=== PATIENT | female | born 1955 | race Caucasian/White ===

== ENCOUNTER → 2017-05-22 | Outpatient (CLI) | payer BC | LOC: MC.RAD 09:52 | DX: Z12.31 Encounter for screening mammogram for malignant neoplasm of breast (principal) ==

== ENCOUNTER → 2019-09-21 | Outpatient (CLI) | payer BC | LOC: MC.RAD 10:19 | DX: Z12.31 Encounter for screening mammogram for malignant neoplasm of breast (principal) ==

== ENCOUNTER → 2020-03-02 | Outpatient (CLI) | payer BC | LOC: MC.RAD 02-22 13:45 | DX: N63.20 Unspecified lump in the left breast, unspecified quadrant (principal); N64.89 Other specified disorders of breast; R92.0 Mammographic microcalcification found on diagnostic imaging of breast ==

== ENCOUNTER → 2020-03-31 | Outpatient (CLI) | payer BC ==
[~2020-03-31] MED LIST: ASPIRIN E.C. 8181 MG PO; DIOVAN HCT 25 M1 TAB PO; ULTRAM 50MG TAB50 MG PO
[2020-03-31 07:25] LABS: HEMATOCRIT 43.1 % (37.0-47.0); HEMOGLOBIN 13.9 g/dl (12.5-16.0); MEAN CELL VOLUME 85 fl (80.0-100.0); MEAN CORPUSCULAR HEMOGLOBIN 28 pg (27.0-31.0); MEAN CORPUSCULAR HGB CONC 32 g/dl (33.0-37.0); MEAN PLATELET VOLUME 9.5 fl (7.4-10.4); PLATELET COUNT 238 K/mm3 (130-400); RED BLOOD COUNT 5.06 M/mm3 (4.10-5.30); REDCELL DISTRIBUTION WIDTH-CV 13.6 % (11.5-14.5)
[2020-03-31 07:38] LABS: BILIRUBIN,TOTAL 1.4 mg/dL (0.0-1.0); CALCIUM 9.3 mg/dL (8.4-10.2); CHOLESTEROL RISK RATIO 3.9; CREATININE, serum 1.14 (0.52-1.25); POTASSIUM 3.8 mmol/L (3.4-5.0); TOTAL PROTEIN 7.6 gm/dL (6.4-8.2)
== END ==
LOC: COL.LAB 06:56
PROVIDERS: Surgery
DX: Z01.818 Encounter for other preprocedural examination (principal); I10 Essential (primary) hypertension

== ENCOUNTER 2020-04-03 06:40 | Day surgery (SDC) | payer BC ==
[~2020-04-03] VITALS: Ht 170.2 cm; Wt 108.8 kg
[2020-04-03] MEDS ORDERED: ASPIRIN E.C. 8181 MG PO (07:37)
[2020-04-03] MEDS ORDERED: DIOVAN HCT 25 M1 TAB PO (07:37)
[2020-04-03 08:01] VITALS: BP 143/62; PULSE 64; TEMP 98.2
[2020-04-03] MEDS ORDERED: ULTRAM 50MG TAB50 MG PO (14:35)
[2020-04-03 15:25] VITALS: BP 101/42; PULSE 66; TEMP 97.9
--- NOTE | 2020-04-03 15:25 | NUR ---
Patient arrives back to [facility] alert, denies pain or nausea. Patient monitor applied, vitals stable. Patient's dressing on left breast/axilla is clean, dry and intact. GREGOR drain has a small amount of blood present. Patient resting comfortably on cart. Patient given juice and toast.
[2020-04-03 15:40] VITALS: BP 113/49; PULSE 79
--- NOTE | 2020-04-03 15:50 | NUR ---
Patient tolerated juice and toast without any nausea, denies pain, vitals stable.
[2020-04-03 15:55] VITALS: BP 108/59; PULSE 70
--- NOTE | 2020-04-03 16:05 | NUR ---
Patient up to restroom at this time, and is able to urinate without any complications. Patient has steady gate with standby assist.
--- NOTE | 2020-04-03 16:15 | NUR ---
GREGOR drain emptied at this time, and patient educated/shown proper method for emptying. 10cc of blood drained.
--- NOTE | 2020-04-03 16:25 | NUR ---
Dismissal instructions gone over with patient. Patient voices understanding, and all questions answered.
--- NOTE | 2020-04-03 16:30 | NUR ---
Patient discharged to private vehicle at ER enterance via wheelchair without any complications. Patient leaves thanking staff for services.
== END 2020-04-03 16:30 | disposition home or self-care (01) ==
LOC: SDCO 06:40
DX: C50.412 Malignant neoplasm of upper-outer quadrant of left female breast (principal); C77.3 Secondary and unspecified malignant neoplasm of axilla and upper limb lymph nodes; Z17.0 Estrogen receptor positive status [ER+]; I10 Essential (primary) hypertension; Z79.82 Long term (current) use of aspirin; Z79.899 Other long term (current) drug therapy; Z90.710 Acquired absence of both cervix and uterus; Z82.49 Family history of ischemic heart disease and other diseases of the circulatory system; Z82.3 Family history of stroke; Z83.3 Family history of diabetes mellitus
CPT/HCPCS: A9541; J0690; J1100; J1885; J2250; J2405; J2704; J2795; J3010; J7120; Q9968

== ENCOUNTER 2020-04-12 07:24 | Day surgery (SDC) | payer BC ==
[~2020-04-12] VITALS: Ht 170.2 cm; Wt 108.7 kg
[2020-04-12 08:25] VITALS: BP 105/52; PULSE 67; TEMP 98.5
[2020-04-12 10:26] VITALS: BP 88/42; PULSE 67; TEMP 97.3
--- NOTE | 2020-04-12 10:26 | NUR ---
PATIENT TRANSPORTED TO BAY 7 FROM OR ACCOMPANIED BY OR STAFF. MONITORS APPLIED. BLOOD PRESSURE 88/42, ADRIANNE WITH ANSETHESIA AWARE. PATIENT DENIES LIGHTHEADEDNESS/DIZZINESS. IV FLUIDS CONTINUED. VERBAL REPORT RECEIVED. DRESSING TO LEFT BREAST CD&I.
[2020-04-12 10:30] VITALS: BP 93/45; PULSE 65
--- NOTE | 2020-04-12 10:33 | NUR ---
VITAL SIGNS ARE IMPROVING BLOOD PRESSURE 93/45. PATIENT DENIES DISCOMFORT AND NAUSEA. PATIENT ALERT AND TALKING WITH STAFF. PATIENT GIVEN ORANGE JUICE TO DRINK.
[2020-04-12 10:45] VITALS: BP 105/45; PULSE 62
--- NOTE | 2020-04-12 10:46 | NUR ---
VSS. PATIENT ALERT AND TALKING WITH STAFF. PATIENT DENIES DISCOMFORT AND NAUSEA. TOLERATING OJ WITHOUT PROBLEMS. 8032 PATIENT GIVEN TOAST TO EAT.
[2020-04-12 11:00] VITALS: BP 102/55; PULSE 60
--- NOTE | 2020-04-12 11:00 | NUR ---
VSS. PATIENT TOLERATES TOAST WITHOUT PROBLEMS. PATIENT CONTINUES TO DENY DISCOMFORT AND NAUSEA. 1112 IV DC'D INTACT. PRESSURE AND BANDAGE APPLIED. CALLED TO COME PICKUP PATIENT.
[2020-04-12 11:30] VITALS: BP 107/68; PULSE 64
--- NOTE | 2020-04-12 11:30 | NUR ---
VITAL SIGNS STABLE. PATIENT DRESSED IN STREET CLOTHES. CONTINUES TO DENY DISCOMFORT AND NAUSEA. PATIENT GIVEN DISCHARGE INSTRUCTIONS VERBAL AND WRITTEN IN A PACKET. FOLLOWUP APPIONTMENT MADE. QUESTIONS ANSWERED AND PATIENT VOICED UNDERSTANDING.
--- NOTE | 2020-04-12 12:00 | NUR ---
PATIENT DISCHARGE PER WHEELCHAIR TO PRIVATE VEHICLE WITH DRIVING. DICHARGE PACKET IN HAND.
== END 2020-04-12 12:00 | disposition home or self-care (01) ==
LOC: SDCO 07:24
DX: C50.412 Malignant neoplasm of upper-outer quadrant of left female breast (principal); C77.3 Secondary and unspecified malignant neoplasm of axilla and upper limb lymph nodes; Z17.0 Estrogen receptor positive status [ER+]; Z79.82 Long term (current) use of aspirin; I10 Essential (primary) hypertension; Z79.899 Other long term (current) drug therapy; Z82.49 Family history of ischemic heart disease and other diseases of the circulatory system; Z83.3 Family history of diabetes mellitus; Z82.3 Family history of stroke
CPT/HCPCS: J0690; J1100; J1885; J2405; J2704; J3010; J7120

== ENCOUNTER → 2020-05-03 | Outpatient (CLI) | payer BC | LOC: COL.VAS 14:00 | DX: C50.412 Malignant neoplasm of upper-outer quadrant of left female breast (principal); Z92.21 Personal history of antineoplastic chemotherapy ==

== ENCOUNTER 2020-10-24 02:17 | Observation (INO) | payer BC ==
[~2020-10-24] VITALS: Ht 170.2 cm; Wt 101.8 kg
[2020-10-24 02:54] LABS: BASO # 0.1 (0.0-0.2); BASO % 0.6 % (0.0-2.0); EOS # 0.1 (0.0-0.7); EOS % 1.1 % (0-4.0); GRAN # 8.8 (1.4-6.5); GRAN % 85.2 % (42.2-75.2); LYMPH # 0.7 (1.2-3.4); LYMPH % 6.8 % (20.0-51.0); MEAN CELL VOLUME 85 fl (80.0-100.0); MEAN CORPUSCULAR HEMOGLOBIN 27 pg (27.0-31.0); MEAN CORPUSCULAR HGB CONC 32 g/dl (33.0-37.0); MEAN PLATELET VOLUME 9.6 fl (7.4-10.4); MONO # 0.6 (0.1-0.6); MONO % 5.9 % (1.7-9.3); PLATELET COUNT 237 K/mm3 (130-400); RED BLOOD COUNT 4.38 M/mm3 (4.10-5.30); REDCELL DISTRIBUTION WIDTH-CV 14.6 % (11.5-14.5)
[2020-10-24 03:06] LABS: CALCIUM 9.1 mg/dL (8.4-10.2); CREATININE, serum 0.85 (0.52-1.25); MAGNESIUM 1.7 mg/dL (1.6-2.3); POTASSIUM 3.7 mmol/L (3.4-5.0)
[2020-10-24 06:06] VITALS: BP 102/50; PULSE 68; TEMP 98
--- NOTE | 2020-10-24 06:22 | NUR ---
Patient up from ED via stretcher. PAtient alert and oriented. Visably having lots of pain. Med rec done. Admission complete. Patient describes pain in her Left hip/bottom. K pad set up for her. PAtient has a L extremity restriction. Bracelet applied and sign placed outside room. Will report off to day shift.
[2020-10-24 07:39] VITALS: BP 99/48; PULSE 68; TEMP 98.1
--- NOTE | 2020-10-24 11:16 | NUR ---
SW met with the patient to discuss discharge plan. The patient lives in [place] with her , Davian (ph#[phone], and son. She reports independence with ADLs and does not have any DME. The patient's PCP is Dr. Tamika Turcios and she receives her medications from [facility]. She reports no difficulties obtaining her meds. The patient does not have a DPOA-HC in EMR, but she states that she does have one completed and at home. She states that it designates her . The patient plans to return home with her family upon discharge. No additional needs at this time.
--- NOTE | 2020-10-24 11:19 | NUR ---
Patient alert and oriented, answers questions appropriately. See assessment. C/o pain to left hip, radiating down to knee. Pulses palpable to BLE, no numbness or tingling. Able to bear weight. No c/o at this time.
[2020-10-24 11:37] VITALS: BP 103/48; PULSE 73; TEMP 97.9
[2020-10-24] MEDS ORDERED: IBU400 MG PO (11:50)
[2020-10-24] MEDS ORDERED: LIORESAL 1010 MG/TAB PO (11:51)
--- NOTE | 2020-10-24 12:16 | NUR ---
First visit from the peoplesoft consultant. No needs right now.
--- NOTE | 2020-10-24 15:39 | NUR ---
PAC flush and deaccessed. Discharge instructions reviewed with patient, verbalized understanding. Discharged via wheelchair to auto/home with spouse at 1345.
== END 2020-10-24 13:45 | disposition home or self-care (01) ==
LOC: COL.ER 02:17 → SURG 05:08
PROVIDERS: Emergency Medicine; ADMIT Hospitalist
DX: M54.5 Low back pain (principal); M79.652 Pain in left thigh; K80.80 Other cholelithiasis without obstruction; Z85.3 Personal history of malignant neoplasm of breast; Z90.710 Acquired absence of both cervix and uterus; I10 Essential (primary) hypertension; Z90.12 Acquired absence of left breast and nipple; Z92.3 Personal history of irradiation; Z79.82 Long term (current) use of aspirin; F17.210 Nicotine dependence, cigarettes, uncomplicated
CPT/HCPCS: J1170; J1885; J2270; J2360; J2405; J3360; Q9967

== ENCOUNTER 2021-03-09 08:30 | Outpatient (RCR) | payer BC ==
[~2021-03-09 08:30] MED LIST changes: +IBU400 MG PO; +LIORESAL 1010 MG/TAB PO
== END 2021-04-01 | disposition home or self-care (01) ==
LOC: MKS.ESL.PT
DX: C50.412 Malignant neoplasm of upper-outer quadrant of left female breast (principal)

== ENCOUNTER → 2021-05-10 | Outpatient (CLI) | payer BC | LOC: MC.RAD 09:48 | DX: Z98.890 Other specified postprocedural states (principal); Z85.3 Personal history of malignant neoplasm of breast ==